=== PATIENT | female | born 1960 | race Caucasian/White ===

== ENCOUNTER 2020-02-02 07:40 | Outpatient (CLI) | payer OTHER, SELFPAY ==
[2020-02-02 08:21] LABS: Alanine Aminotransferase 17 U/L (4-35); Albumin Level 4.8 g/dL (3.5-5.1); Alkaline Phosphatase 68 U/L (38-126); Aspartate Amino Transferase 24 U/L (14-36); Bilirubin,Total 0.3 mg/dL (0.2-1.3); Blood Urea Nitrogen 13 mg/dL (7-17); Calcium 9.1 mg/dL (8.4-10.2); Carbon Dioxide 24 mmol/L (22-30); Chloride 103 mmol/L (98-107); Cholesterol 241 mg/dL (0-200); Estimated Glomerular Filt Rate > 60; Glucose 96 mg/dL (65-105); HDL Direct 66 mg/dL; Potassium 3.9 mmol/L (3.4-5.0); Sodium 135 mmol/L (137-145); Triglycerides 90 mg/dL (<150)
[2020-02-02 08:33] LABS: LDL Cholesterol Direct 152 mg/dL
[2020-02-02 09:27] LABS: Folic Acid 14.1 ng/mL (2.76->20)
[2020-02-02 16:15] LABS: Basophils Percent Auto 0.4 % (0.2-1.2); Eosinophils Percent Auto 0.4 % (0-4.4); Hematocrit 36.2 % (37.0-47.0); Hemoglobin 12.6 g/dL (12.0-15.0); Immature Granulocyte Absolute 0.01 K/mm3 (0.00-0.031); Immature Granulocyte Percent A 0.1 % (0-0.5); Lymphocytes Absolute Auto 2.22 K/mm3 (0.9-3.2); Lymphocytes Percent Auto 30.5 % (18.3-44.2); Mean Corpuscular HGB Conc 34.8 g/dl (32-36); Mean Corpuscular Hemoglobin 31.6 pg (26-34); Mean Corpuscular Volume 90.7 fl (80-100); Monocytes Absolute Auto 0.5 K/mm3 (0.1-0.6); Monocytes Percent Auto 6.7 % (2.6-8.5); Neutrophils Absolute Auto 4.5 K/mm3 (1.3-6.7); Neutrophils Percent Auto 61.9 % (45.5-73.1); Platelet Count Result 239 k/mm3 (150-375); Red Blood Count 3.99 M/mm3 (4.2-5.4); Red Cell Distribution Width 12.6 % (11.5-14.5); White Blood Count 7.3 K/mm3 (4.5-10.0)
== END 2020-02-02 07:41 | disposition home or self-care (01) ==
LOC: ANHLAB 07:42
PROVIDERS: PCP Nurse Practitioner Adult Health; Visit Provider Nurse Practitioner Adult Health
DX: Z13.220 Encounter for screening for lipoid disorders (principal); Z13.29 Encounter for screening for other suspected endocrine disorder; Z13.9 Encounter for screening, unspecified
CPT/HCPCS: 36415; 80053; 80061; 82607; 82746; 84443; 85025

== ENCOUNTER 2020-02-03 00:04 | Outpatient (CLI) | payer OTHER, SELFPAY ==
[2020-02-03 15:54] LABS: SARS-CoV-2 RNA PCR Negative
== END 2020-02-03 00:05 | disposition home or self-care (01) ==
LOC: ANHCOVIDDT 00:04
PROVIDERS: PCP Nurse Practitioner Adult Health; Visit Provider Internal Medicine Gastroenterology
DX: Z01.818 Encounter for other preprocedural examination (principal); Z11.59 Encounter for screening for other viral diseases
CPT/HCPCS: 87635; C9803; U0003

== ENCOUNTER 2020-02-06 03:27 | Day surgery (SDC) | payer OTHER, SELFPAY ==
[2020-02-02 11:37] VITALS: BMI 28.8
--- NOTE | 2020-02-05 16:30 | WPDANESEPP ---
Anes - Eval Pre Procedure Procedure: Operation Date: 02/06/20 07:30 Proposed Procedures p Esophagogastroduodenoscopy - Kashif Thorne MD Date/Time: 02/05/20 16:30 Surgeon: cindy Pre Op Diagnosis: dysphagia Patient Data Age: 59 Gender: F Height: 1.63 m Weight: 76 kg Allergies Allergy/AdvReac Type Severity Reaction Status Date / Time No Known Allergies Allergy Verified 02/02/20 11:24 Home Medications Medication Instructions Recorded Confirmed Type omeprazole 40 mg PO DAILY 02/02/20 02/02/20 History Patient hx anesthesia problems: none Family hx anesthesia problems: none PMFSH Surgical History Surgical History (Updated 02/05/20 @ 16:31 by Ledy Doe CRNA) H/O section H/O tubal ligation Social History Social History Smoking status: Never smoker Alcohol intake: current Gender identity (if verbalized by the patient): Female Exam Day of Procedure 02/05/20 16:30
[2020-02-06 06:05] VITALS: BP 144/66; PULSE 90; RESP 18; TEMP 36.6; O2SAT 100
[2020-02-06] MEDS: LACTATED RINGERS 1,000 ML 150 ML IV CONT (06:28)
--- NOTE | 2020-02-06 07:02 | PM.HPGS ---
History of Present Illness History of Present Illness Consent: Risks, benefits, and alternatives have been discussed and questions answered. Patient agrees to proceed with procedure. Chief complaint: dysphagia Narrative: Roxy Stewart is a 59 year old W female Referred for EGD and possible esophageal dilatation for evaluation she of intermittent substernal chest pain and back pain. She has occasional difficulty swallowing pills. Patient was seen by primary physician the EKG was performed. Patient was placed on omeprazole several days ago has had notice improvement. Patient is nonsmoker. Patient has had some increased stress recently. She denies any nonsteroidal inflammatory drugs. [facility] Surgical History Surgical History H/O section H/O tubal ligation Social History Social History Smoking status: Never smoker Alcohol intake: current Gender identity (if verbalized by the patient): Female Meds Home Medications and Allergies Home Medications Medication Instructions Recorded Confirmed Type omeprazole 40 mg PO DAILY 02/02/20 02/06/20 History Allergies Allergy/AdvReac Type Severity Reaction Status Date / Time No Known Allergies Allergy Verified 02/06/20 06:17 Vital Signs Vital Signs - 24 hr 02/06/20 06:05 Temperature 36.6 C Pulse Rate 90 Respiratory Rate 18 Blood Pressure 144/66 H Pulse Oximetry 100 Exam Const: Orientation/consciousness: patient oriented x3 Resp: Auscultation: clear to auscultation bilaterally Cardio: Rate: regular rate Rhythm: regular rhythm Heart sounds: no murmurs GI: GI Palp: Yes Soft to palpation, No Tenderness to palpation present (GI), Yes No hepatosplenomegaly present and No Palpable mass present Auscultation: normal bowel sounds Neuro: General: patient oriented x3 and no focal motor deficits Extrem: General: no pedal edema Assessment and Plan Additional Plan EGD possible esophageal dilatation for evaluation substernal chest pain back pain and and belching.
--- NOTE | 2020-02-06 07:11 | WPDANESEPPF ---
Anes - Initial Pre Proc Eval Procedure: Operation Date: 02/06/20 07:30 Proposed Procedures p Esophagogastroduodenoscopy - Kashif Thorne MD Date/Time: 02/06/20 07:11 Surgeon: Kashif Thorne MD Pre Op Diagnosis: dysphagia Patient Data Age: 59 Gender: F Height: 5 ft 4 in Weight: 75.6 kg Last Vital Signs Temp 97.8 F 02/06/20 06:05 Pulse 90 02/06/20 06:05 Resp 18 02/06/20 06:05 BP 144/66 H 02/06/20 06:05 Pulse Ox 100 02/06/20 06:05 Allergies Allergy/AdvReac Type Severity Reaction Status Date / Time No Known Allergies Allergy Verified 02/06/20 06:17 Home Medications Medication Instructions Recorded Confirmed Type omeprazole 40 mg PO DAILY 02/02/20 02/06/20 History Patient hx anesthesia problems: none Family hx anesthesia problems: none [facility] Past Medical History Medical History (Updated 02/06/20 @ 07:10 by Perry Singleton MD) Healthy adult Surgical History Surgical History H/O section H/O tubal ligation Social History Social History Smoking status: Never smoker Alcohol intake: current Gender identity (if verbalized by the patient): Female Anes - Eval Final PreProcedure Day of Procedure 02/06/20 07:11 Patient weight: overweight Heart: regular rate and rhythm Lungs: clear to auscultation Airway: Mallampati scale class II Neurological: alert and oriented Last oral intake: >/= 8 hours ASA classification: II Emergent: no Anesthetic plan: proceed Anesthesia type and monitoring: general GIVS and standard monitoring Informed Consent: The patient's anesthetic plan and its attendant risks and benefits were discussed with the patient/family/POA. Questions were solicited and answers provided to the satisfaction of the patient/family/POA.
--- NOTE | 2020-02-06 07:23 | SUR.OPER ---
0723 UPDATED SPOUSE TIMOTHY WITH PT'S PROGRESS Marnie BOLANOS RN
[2020-02-06 07:37] VITALS: BP 110/66; PULSE 96; RESP 19; O2SAT 97
[2020-02-06 07:47] VITALS: BP 121/66; PULSE 85; RESP 21; O2SAT 97
[2020-02-06 07:57] VITALS: BP 138/53; PULSE 82; RESP 25; O2SAT 100
== END 2020-02-06 08:07 | disposition home or self-care (01) ==
PROVIDERS: PCP Nurse Practitioner Adult Health; Visit Provider Internal Medicine Gastroenterology
PROC: 0DJ08ZZ Inspection of Upper Intestinal Tract, Via Natural or Artificial Opening Endoscopic (ICD-10-PCS; CPT 43235; principal; 2020-02-06 07:30)
DX: K21.0 Gastro-esophageal reflux disease with esophagitis (principal)
CPT/HCPCS: 43239; 87081; 88305; J2704; J7120

== ENCOUNTER 2020-03-01 10:07 | Outpatient (CLI) | payer OTHER, SELFPAY ==
--- NOTE | ~2020-03-01 | MM_ITS ---
EXAMINATION: MM screening ermelinda BI w nick HISTORY: Screening mammogram TECHNIQUE: Craniocaudal and mediolateral oblique 3-D tomosynthesis images were obtained and synthetic 2-D images were generated. CAD analysis was submitted and interpreted. COMPARISON: No prior mammogram is available for comparison at this institution. BREAST PARENCHYMAL COMPOSITION: There are scattered areas of fibroglandular density. FINDINGS: There is no evidence of suspicious mass, calcification, or architectural distortion to sugg est malignancy in either breast. There has been no suspicious interval change. IMPRESSION: 1. No mammographic evidence of malignancy. 2. Recommend routine screening mammography in one year. BI-RADS Category 1: Negative Reviewed, dictated and finalized at location A.
== END 2020-03-01 10:08 | disposition home or self-care (01) ==
LOC: ANHIMG 10:10
PROVIDERS: PCP Nurse Practitioner Adult Health; Visit Provider Nurse Practitioner Adult Health
DX: Z12.31 Encounter for screening mammogram for malignant neoplasm of breast (principal)
CPT/HCPCS: 77063; 77067

== ENCOUNTER 2020-03-05 08:53 | Outpatient (CLI) | payer OTHER, SELFPAY ==
--- NOTE | 2020-03-05 | EST_ITS ---
Patient Info Name: Roxy Stewart Age: 59 years : 1960 Gender: Female Ht: 64 in Wt: 165 lbs BSA: 1.86 m2 Exam Date: 03/05/2020 9:38 AM Exam Location: [facility] Stress Patient Status: Outpatient Admit Date: 03/05/2020 Staff Ordering Physician: Guerrero, Henny AGARWAL Attending Provider: Guerrero, Henny AGARWAL Exercise Technologist: Uma Novak RDCS Exercise Physician: Stephen Bui DO Exam Type: CA stress test treadmill Study Info Indications R07.89 - Other chest pain A treadmill exercise stress test was performed. Summary 1. 1. Negative Jose exercise stress test for ischemic ST changes by ECG criteria. 2. 2. Reduced functional capacity, achieving 7 METs of workload. 3. 3. Rapid HR response to exercise. 4. 4. Hypertensive response to exercise. 5. 5. No imaging with stress testing. 6. 6. Patient informed of the above results. Protocol: Jose Stress ECG Details Stage: REST Duration (min): 5 min : 2 sec Speed (mph): 0.0 Grade (%): 0 HR (bpm): 85 SBP (mmHg): 127 DBP (mmHg): 83 METS: --- Stage: REST Duration (min): 26 min : 17 sec Speed (mph): 0.0 Grade (%): 0 HR (bpm): 86 SBP (mmHg): 127 DBP (mmHg): 83 METS: --- Stage: STAGE 1 Duration (min): 1 min : 0 sec Speed (mph): 1.7 Grade (%): 10 HR (bpm): 122 SBP (mmHg): 127 DBP (mmHg): 83 METS: --- Stage: STAGE 1 Duration (min): 2 min : 0 sec Speed (mph): 1.7 Grade (%): 10 HR (bpm): 135 SBP (mmHg): 127 DBP (mmHg): 83 METS: --- Stage: STAGE 1 Duration (min): 3 min : 0 sec Speed (mph): 1.7 Grade (%): 10 HR (bpm): 138 SBP (mmHg): 204 DBP (mmHg): 80 METS: --- Stage: STAGE 2 Duration (min): 1 min : 0 sec Speed (mph): 2.5 Grade (%): 12 HR (bpm): 152 SBP (mmHg): 222 DBP (mmHg): 79 METS: --- Stage: STAGE 2 Duration (min): 2 min : 0 sec Speed (mph): 2.5 Grade (%): 12 HR (bpm): 157 SBP (mmHg): 220 DBP (mmHg): 81 METS: --- Stage: STAGE 2 Duration (min): 2 min : 0 sec Speed (mph): 2.5 Grade (%): 12 HR (bpm): 157 SBP (mmHg): 220 DBP (mmHg): 81 METS: --- Stage: RECOVERY Duration (min): 0 min : 59 sec Speed (mph): 0.0 Grade (%): 0 HR (bpm): 127 SBP (mmHg): 220 DBP (mmHg): 81 METS: --- Stage: RECOVERY Duration (min): 1 min : 59 sec Speed (mph): 0.0 Grade (%): 0 HR (bpm): 105 SBP (mmHg): 230 DBP (mmHg): 91 METS: --- Stage: RECOVERY Duration (min): 2 min : 59 sec Speed (mph): 0.0 Grade (%): 0 HR (bpm): 101 SBP (mmHg): 200 DBP (mmHg): 91 METS: --- Stage: RECOVERY Duration (min): 3 min : 59 sec Speed (mph): 0.0 Grade (%): 0 HR (bpm): 94 SBP (mmHg): 200 DBP (mmHg): 91 METS: --- Stage: RECOVERY Duration (min): 4 min : 59 sec Speed (mph): 0.0 G
== END 2020-03-05 08:54 | disposition home or self-care (01) ==
LOC: ANHCARD 08:59
PROVIDERS: PCP Nurse Practitioner Adult Health; Visit Provider Nurse Practitioner Adult Health
DX: R07.89 Other chest pain (principal)
CPT/HCPCS: 93017

== ENCOUNTER 2020-05-21 08:07 | Outpatient (CLI) | payer OTHER, SELFPAY ==
[2020-05-21 08:48] LABS: Cholesterol 248 mg/dL (0-200); HDL Direct 66 mg/dL; Triglycerides 90 mg/dL (<150)
[2020-05-21 08:59] LABS: LDL Cholesterol Direct 140 mg/dL
[2020-05-21 10:01] LABS: Folic Acid > 20.0 ng/mL (2.76->20)
== END 2020-05-21 08:08 | disposition home or self-care (01) ==
LOC: ANHLAB 08:09
PROVIDERS: PCP Nurse Practitioner Adult Health; Visit Provider Nurse Practitioner Adult Health
DX: E53.8 Deficiency of other specified B group vitamins (principal); E78.5 Hyperlipidemia, unspecified
CPT/HCPCS: 36415; 80061; 82607; 82746

== ENCOUNTER 2021-07-13 07:31 | Outpatient (CLI) | payer OTHER, SELFPAY ==
[2021-07-13 07:50] LABS: Basophils Percent Auto 0.3 % (0.2-1.2); Eosinophils Absolute Auto 0.1 K/mm3 (0-0.3); Eosinophils Percent Auto 1.1 % (0-4.4); Hematocrit 36.1 % (37.0-47.0); Hemoglobin 12.7 g/dL (12.0-15.0); Immature Granulocyte Absolute 0.01 K/mm3 (0.00-0.031); Immature Granulocyte Percent A 0.2 % (0-0.5); Lymphocytes Absolute Auto 2.09 K/mm3 (0.9-3.2); Lymphocytes Percent Auto 33.4 % (18.3-44.2); Mean Corpuscular HGB Conc 35.2 g/dl (32-36); Mean Corpuscular Hemoglobin 32.5 pg (26-34); Mean Corpuscular Volume 92.3 fl (80-100); Mean Platelet Volume 10.1 fl (7.4-10.4); Monocytes Absolute Auto 0.5 K/mm3 (0.1-0.6); Monocytes Percent Auto 8.1 % (2.6-8.5); Neutrophils Absolute Auto 3.6 K/mm3 (1.3-6.7); Neutrophils Percent Auto 56.9 % (45.5-73.1); Platelet Count Result 247 k/mm3 (150-375); Red Blood Count 3.91 M/mm3 (4.2-5.4); White Blood Count 6.3 K/mm3 (4.5-10.0)
[2021-07-13 08:02] LABS: Alanine Aminotransferase 22 U/L (4-35); Albumin Level 5.1 g/dL (3.5-5.1); Alkaline Phosphatase 57 U/L (38-126); Anion Gap 12 mmol/L (8-16); Aspartate Amino Transferase 28 U/L (14-36); Bilirubin,Total 0.5 mg/dL (0.2-1.3); Blood Urea Nitrogen 10 mg/dL (7-17); Calcium 9.3 mg/dL (8.4-10.2); Carbon Dioxide 22 mmol/L (22-30); Chloride 101 mmol/L (98-107); Cholesterol 272 mg/dL (0-200); Estimated Glomerular Filt Rate > 60; Glucose 92 mg/dL (65-110); HDL Direct 79 mg/dL; Potassium 3.9 mmol/L (3.4-5.0); Sodium 135 mmol/L (137-145); Triglycerides 75 mg/dL (<150)
[2021-07-13 08:13] LABS: LDL Cholesterol Direct 159 mg/dL
[2021-07-13 09:09] LABS: Folic Acid > 20.0 ng/mL (2.76->20)
== END 2021-07-13 07:32 | disposition home or self-care (01) ==
PROVIDERS: PCP Nurse Practitioner Adult Health; Visit Provider Nurse Practitioner Adult Health
DX: Z00.00 Encounter for general adult medical examination without abnormal findings (principal)
CPT/HCPCS: 36415; 80053; 80061; 82607; 82746; 84443; 85025

== ENCOUNTER 2021-11-06 09:42 | Outpatient (CLI) | payer OTHER, SELFPAY ==
--- NOTE | ~2021-11-06 | MM_ITS ---
EXAMINATION: MM screening ermelinda BI w nick HISTORY: Screening TECHNIQUE: Craniocaudal and mediolateral oblique 3-D tomosynthesis images were obtained and synthetic 2-D images were generated. CAD analysis was submitted and interpreted. COMPARISON: No prior mammogram is available for comparison at this institution. BREAST PARENCHYMAL COMPOSITION: There are scattered areas of fibroglandular density. FINDINGS: There is possible architectural distortion in the outer aspect of the right breast on cc vi ew. The left breast is stable without evidence for malignancy. IMPRESSION: 1. Possible architectural distortion of the right breast laterally. 2. Additional mammographic views and possible breast ultrasound are recommended. BI-RADS Category 0: Incomplete: Needs additional imaging evaluation. Reviewed, dictated and finalized at location A. NEWS DIRECTOR IMPRESSION: 1. Possible architectural distortion of the right breast laterally. 2. Additional mammographic views and possible breast ultrasound are recommended . BI-RADS Category 0: Incomplete: Needs additional imaging evaluation.
== END 2021-11-06 09:43 | disposition home or self-care (01) ==
LOC: ANHIMG 09:43
PROVIDERS: PCP Nurse Practitioner Adult Health; Visit Provider Nurse Practitioner Adult Health
DX: Z12.31 Encounter for screening mammogram for malignant neoplasm of breast (principal); R92.8 Other abnormal and inconclusive findings on diagnostic imaging of breast
CPT/HCPCS: 77063; 77067

== ENCOUNTER 2021-11-14 11:48 | Outpatient (CLI) | payer OTHER, SELFPAY ==
--- NOTE | ~2021-11-14 | MMUS_ITS ---
EXAMINATION: MM diagnostic ermelinda RT w nick, US breast RT limited HISTORY: Possible right breast architectural distortion on screening TECHNIQUE: Additional 3-D tomosynthesis images of the right breast were performed and synthetic 2-D i mages were generated. CAD analysis was submitted and interpreted. High resolution limited right breas t ultrasound was performed. COMPARISON: 11/06/2021, 03/01/2020 FINDINGS: MAMMOGRAPHIC FINDINGS: There is a return to baseline fibroglandular appearance with spot compression of the right breast in the area questioned on screening mammogram. ULTRASOUND: There is no evidence of focal abnormal solid or cystic mass in the vicinity of the mammographic findi ng in question. IMPRESSION: 1. No mammographic or sonographic evidence of malignancy. 2. Recommend routine screening mammography in one year. BI-RADS Category 1: Negative Reviewed, dictated and finalized at location A. IMPRESSION: 1. No mammographic or sonographic evidence of malignancy. 2. Recommend routine screening mammography in one year. BI-RADS Category 1: Negative
== END 2021-11-14 11:49 | disposition home or self-care (01) ==
LOC: ANHIMG 11:50
PROVIDERS: PCP Nurse Practitioner Adult Health; Visit Provider Nurse Practitioner Adult Health
DX: R92.8 Other abnormal and inconclusive findings on diagnostic imaging of breast (principal)
CPT/HCPCS: 76642; 77061; 77065; G0279

== ENCOUNTER 2022-06-28 07:32 | Outpatient (CLI) | payer OTHER, SELFPAY ==
[2022-06-28 08:14] LABS: Anion Gap 13 mmol/L (8-16); Blood Urea Nitrogen 12 mg/dL (7-17); Calcium 9.1 mg/dL (8.4-10.2); Carbon Dioxide 22 mmol/L (22-30); Chloride 102 mmol/L (98-107); Cholesterol 244 mg/dL (0-200); Estimated Glomerular Filt Rate > 60; Glucose 97 mg/dL (65-110); HDL Direct 73 mg/dL; Potassium 4.1 mmol/L (3.4-5.0); Sodium 137 mmol/L (137-145); Triglycerides 81 mg/dL (<150)
[2022-06-28 08:22] LABS: LDL Cholesterol Direct 134 mg/dL
[2022-06-28 09:20] LABS: Folic Acid > 20.0 ng/mL (2.76->20)
== END 2022-06-28 07:33 | disposition home or self-care (01) ==
LOC: ANHLAB 07:33
PROVIDERS: PCP Nurse Practitioner Adult Health; Visit Provider Nurse Practitioner Adult Health
DX: E78.5 Hyperlipidemia, unspecified (principal); E53.8 Deficiency of other specified B group vitamins
CPT/HCPCS: 36415; 80048; 80061; 82607; 82746

== ENCOUNTER 2022-07-02 15:48 | Outpatient (CLI) | payer OTHER, SELFPAY ==
--- NOTE | ~2022-07-02 | DEXA_ITS ---
Bone Density Report Name: MERCDE DUGAN Age: 62 Sex: Female Ethnicity: White Date of : 1960 Indication: postmenopausal; screening for osteoporosis; Referring Provider: ANYA, PARUL Study: Bone densitometry was performed. Exam Date: July 02, 2022 Accession number: [id number] Bone Density: Region BMD T-score Z-score Classification AP Spine(L1-L4) 1.210 1.5 3.2 Normal Femoral Neck (Left) 0.711 -1.2 0.2 Osteopenia Total Hip (Left) 0.829 -0.9 0.2 Normal Femoral Neck (Right) 0.722 -1.1 0.3 Osteopenia Total Hip (Right) 0.827 -0.9 0.2 Normal Total Hip Mean 0.828 -0.9 0.2 Normal World Health Organization criteria for BMD impression classify patients as: Normal (T-score at or above -1.0), Osteopenia (T-score between -1.0 and -2.5), or Osteoporosis (T-score at or below -2.5). 10-year Fracture Risk(1): Major Osteoporotic Fracture 9.8% Hip Fracture 1.0% Reported Risk Factors: [place] (), Neck BMD=0.711, BMI=26.4, alcohol use (1) FRAX(R) Version 3.08. Fracture probability calculated for an untreated patient. Fracture probability may be lower if the patient has received treatment. Clinical Information Provided by Patient: Has 3 or more alcoholic drinks per day Patient maximum height was 63 Menopause Age: 48 Does not regularly consume dairy products Drinks caffeinated beverages Impression: The patient has low bone mass, based on the Left Femoral Neck T-score. The patient has an estimated ten-year risk of hip fracture of 1% and an estimated ten-year risk of major fracture of 9.8%, based on the WHO FRAX algorithm. The patient has risk factors, including: excessive alcohol use. Discussion: BONE DENSITY IS LOW AT ONE OR MORE SKELETAL SITES. This patient's lowest T-score is low at one or more skeletal sites. It meets the World Health Organization's (WHO) criteria for ?low bone mass? (T-score between -1.0 and -2.5). The patient's 10-year risk of fracture as calculated by FRAX is less than the threshold where pharmacological therapy is recommended by the National Osteoporosis Foundation (NOF). However, all treatment decisions require clinical judgment and consideration of individual patient factors, including patient preferences, comorbidities, previous drug use, risk factors not captured in the FRAX model (e.g., frailty, falls, vitamin D deficiency, increased bone turnover, interval significant decline in bone density) and possible under or overestimation of fracture risk by FRAX. The patient should follow a healthful lifestyle (good nutrition with adequate calcium and vitamin D, and appropriate weight-bearing exercise). Follow-Up: Consider repeating this study in 2 to 3 years to reassess this patient's status, or sooner if there is some new clinical indication.
== END 2022-07-02 15:49 | disposition home or self-care (01) ==
PROVIDERS: PCP Nurse Practitioner Adult Health; Visit Provider Nurse Practitioner Adult Health
DX: Z78.0 Asymptomatic menopausal state (principal); M85.89 Other specified disorders of bone density and structure, multiple sites
CPT/HCPCS: 77080

== ENCOUNTER 2023-04-13 23:07 | Emergency (ER) | payer OTHER, SELFPAY ==
--- NOTE | ~2023-04-13 | XR_ITS ---
EXAMINATION: XR foot LT min 3V DATE: 04/14/2023 00:29 INDICATION: Left foot pain. Fall. TECHNIQUE: 3 views of left foot were obtained. COMPARISON: None. FINDINGS: There is a nondisplaced oblique fracture of diaphysis of fifth metatarsal. 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 There are ent hesophytes at the posterior and plantar aspects of calcaneal tuberosity. IMPRESSION: 1. Nondisplaced oblique fracture of diaphysis of fifth metatarsal. Reviewed, dictated and finalized at location A.
[2023-04-13 23:11] VITALS: BP 130/72; PULSE 75; RESP 20; TEMP 36.5; O2SAT 100
--- NOTE | 2023-04-14 01:13 | ED.FALL ---
HPI - Fall General Chief Complaint: Fall <ASHVIN Sarmiento Last Filed: 04/14/23 01:23> Stated Complaint: L foot pain <ASHVIN Sarmiento Last Filed: 04/14/23 01:23> Time Seen by Provider: 04/14/23 01:05 <Patricia Sandoval PA-C - Last Filed: 04/14/23 01:23> History of Present Illness HPI Narrative: 62-year-old female with a history of hyperlipidemia reports for evaluation for left foot pain after a fall that occurred earlier today while working out. Patient states she was using elastic bands while working out over both of her feet, lifted up her left foot and lost her balance. States she landed on her bottom and left hip and is unsure how she injured her foot during the fall. She denies hitting her head or losing consciousness. Denies other injury required her to fall. States he has been ambulating during the day with pain that only occurs during ambulation but is gone while at rest. She is reporting the pain, ecchymosis and edema overlying her fifth metatarsal. Denies paresthesias. <Patricia Sandoval PA-C - Last Filed: 04/14/23 01:23> Related Data Allergies/Adverse Reactions: Allergies Allergy/AdvReac Type Severity Reaction Status Date / Time No Known Allergies Allergy Verified 03/09/23 07:43 <Patricia Sandoval PA-C - Last Filed: 04/14/23 01:23> Review of Systems Review of Systems: CONSTITUTIONAL: Denies fever, chills EYES: Denies visual changes, redness, or discharge. ENT: Denies rhinorrhea, congestion, sore throat, or otalgia. CARDIOVASCULAR: Denies chest pain, palpitations, or edema. RESPIRATORY: Denies cough or dyspnea. GASTROINTESTINAL: Denies abdominal pain, nausea, vomiting, or diarrhea. GENITOURINARY: Denies dysuria or hematuria. SKIN: Denies rash or itching. MUSCULOSKELETAL: See HPI NEUROLOGIC: Denies headache, numbness, dizziness, or weakness. PSYCHIATRIC: Denies anxiety or depression. <ASHVIN Sarmiento Last Filed: 04/14/23 01:23> [facility] Past Medical History Medical History: Medical History BMI 25.0-25.9,adult Healthy adult <Patricia Sandoval PA-C - Last Filed: 04/14/23 01:23> Surgical History Surgical History: Surgical History H/O section H/O tubal ligation <Patricia Sandoval PA-C - Last Filed: 04/14/23 01:23> Social History Social History: Social History Smoking status: Never smoker Alcohol intake: current Substance use: never Lack of Transportation: No Lack of Food: Never True Current Housing: I Have Housing Concerned About Future Housing: No Difficulty Paying Gas/Electric Bills: No Difficulty Paying for Meds: No Currently Unemployed: No Education: High School Diploma/GED Difficulty w/ Childcare or Family Care: No Living arrangements: with family Occupation/Education: occupation Gender identity (if verbalized by the patient): Female <Patricia Sandoval PA-C - Last Filed: 04/14/23 01:23> Exam Narrative: GENERAL: Well-appearing, in no acute distress. HEAD: Normocephalic NECK: Supple. CHEST: No respiratory distress. Clear to auscultation, no adventitious breath sounds. HEART: Regular rate and rhythm. No murmur heard. Normal peripheral pulses. EXTREMITIES: Left foot with tenderness over the mid and distal fifth metatarsal. There is overlying edema and ecchymosis through the distal third through fifth metatarsals without tenderness. No tenderness to remainder of toes or foot. No tenderness to ankle or remainder of lower extremity. DP pulse 2+. Sensation intact. Cap refill less than 2. Patient is full range of motion of toes and ankle without difficulty. Compartments are soft. SKIN: Warm, dry, no rash. NEURO: No focal deficits. Alert and oriented x3. PSYCH: Normal mood and affect. <Patricia Tatum
== END 2023-04-14 02:25 | disposition home or self-care (01) ==
LOC: ANHED 04-14 01:22
PROVIDERS: Emergency Provider Physician Assistant; PCP Family Medicine
DX: S92.355A Nondisplaced fracture of fifth metatarsal bone, left foot, initial encounter for closed fracture (principal); E78.5 Hyperlipidemia, unspecified; W18.39XA Other fall on same level, initial encounter; Y93.B9 Activity, other involving muscle strengthening exercises
CPT/HCPCS: 29515; 73630; 99284

== ENCOUNTER 2023-06-22 14:02 | Outpatient (CLI) | payer OTHER, MEDICARE, SELFPAY ==
--- NOTE | ~2023-06-22 | MM_ITS ---
EXAMINATION: MM screening ermelinda BI w nick HISTORY: Screening mammogram TECHNIQUE: Craniocaudal and mediolateral oblique 3-D tomosynthesis images were obtained and synthetic 2-D images were generated. CAD analysis was submitted and interpreted. COMPARISON: 11/14/2021 diagnostic right mammogram and limited right breast ultrasound 11/06/2021, 03/01/2020 bilateral screening mammogram examinations BREAST PARENCHYMAL COMPOSITION: There are scattered areas of fibroglandular density. FINDINGS: There is no evidence of suspicious mass, calcification, or architectural distortion to sugg est malignancy in either breast. There has been no suspicious interval change. IMPRESSION: 1. No mammographic evidence of malignancy. 2. Recommend routine screening mammography in one year. BI-RADS Category 1: Negative Reviewed, dictated and finalized at location A.
== END 2023-06-22 14:03 | disposition home or self-care (01) ==
LOC: ANHIMG 14:03
PROVIDERS: PCP Family Medicine; Visit Provider Physician Assistant Medical
DX: Z12.31 Encounter for screening mammogram for malignant neoplasm of breast (principal)
CPT/HCPCS: 77063; 77067

== ENCOUNTER 2024-11-14 13:57 | Outpatient (CLI) | payer MEDICARE, SELFPAY ==
--- NOTE | ~2024-11-14 | MM_ITS ---
EXAMINATION: MM screening ermelinda BI w nick HISTORY: Screening TECHNIQUE: Craniocaudal and mediolateral oblique 3-D tomosynthesis images were obtained and synthetic 2-D images were generated. CAD analysis was submitted and interpreted. COMPARISON: Comparison to multiple prior studies sequentially, with oldest reviewed study dated 10/2019. BREAST PARENCHYMAL COMPOSITION: Not dense: There are scattered areas of fibroglandular density. FINDINGS: There is no evidence of suspicious mass, calcification, or architectural distortion to sugg est malignancy in either breast. There has been no suspicious interval change. IMPRESSION: 1. No mammographic evidence of malignancy. 2. Recommend routine screening mammography in one year. BI-RADS Category 1: Negative Reviewed, dictated and finalized at location B.
--- OUTSIDE RECORDS SUMMARY | 2024-11-14 16:32 | XMS_ITS | CONTINUITY OF CARE DOCUMENT ---
Author Name adam medina Address Unknown Organization [facility] Address [address] [place] [address] Phone [phone] Care Team Providers Care Under Ground Miner Name Role Phone Iron SHIELDS, [place] Unavailable PARUL GLEASON Unavailable [phone] PARUL GLEASON Unavailable INSURANCE PROVIDERS Payer name Policy type / Coverage type [place] [employer] party ID [employer] Commercial insurance co [facility] [id number]
== END 2024-11-14 13:58 | disposition home or self-care (01) ==
LOC: ANHIMG 13:59
PROVIDERS: PCP Family Medicine; Visit Provider Family Medicine
DX: Z12.31 Encounter for screening mammogram for malignant neoplasm of breast (principal)
CPT/HCPCS: 77063; 77067

== ENCOUNTER 2024-11-26 06:55 | Outpatient (CLI) | payer MEDICARE, SELFPAY ==
--- OUTSIDE RECORDS SUMMARY | 2024-11-26 07:01 | XMS_ITS | CONTINUITY OF CARE DOCUMENT ---
Author Name adam medina Address Unknown Organization [facility] Address [address] [place] [address] Phone [phone] Care Team Providers Care Knit Goods Mender Name Role Phone Iron SHIELDS, [place] Unavailable PARUL GLEASON Unavailable [phone] PARUL GLEASON Unavailable INSURANCE PROVIDERS Payer name Policy type / Coverage type [place] [employer] party ID [employer] Commercial insurance co [facility] [id number]
[2024-11-26 07:37] LABS: Cholesterol 244 mg/dL (0-200); HDL Direct 62 mg/dL; Triglycerides 73 mg/dL (<150)
[2024-11-26 07:48] LABS: LDL Cholesterol Direct 136 mg/dL
[2024-11-26 09:22] LABS: Vitamin D 25 Hydroxy 48.1 ng/mL
== END 2024-11-26 06:56 | disposition home or self-care (01) ==
LOC: ANHLAB 06:59
PROVIDERS: PCP Family Medicine
DX: E55.9 Vitamin D deficiency, unspecified (principal); E78.2 Mixed hyperlipidemia
CPT/HCPCS: 36415; 80061; 82306

== ENCOUNTER 2025-07-01 07:26 | Outpatient (CLI) | payer MEDICARE, SELFPAY ==
[2025-07-01 08:05] LABS: Hematocrit 38.4 % (37.0-47.0); Hemoglobin 13.2 g/dL (12.0-15.0); Immature Granulocyte Percent A 0.2 % (0-0.5); Lymphocytes Absolute Auto 1.79 K/mm3 (0.9-3.2); Mean Corpuscular HGB Conc 34.4 g/dl (32-36); Mean Corpuscular Hemoglobin 31.5 pg (26-34); Mean Corpuscular Volume 91.6 fl (80-100); Nucleated Red Blood Cells Absolute Auto 0.000 K/mm3 (0.0-0.012); Nucleated Red Blood Cells Perc 0.0 % (0.0-0.2); Platelet Count Result 232 k/mm3 (150-375); Red Blood Count 4.19 M/mm3 (4.2-5.4); White Blood Count 4.2 K/mm3 (4.5-10.0)
[2025-07-01 08:19] LABS: Alanine Aminotransferase 29 U/L (6-35); Albumin Level 4.9 g/dL (3.5-5.1); Alkaline Phosphatase 59 U/L (38-126); Anion Gap 10 mmol/L (4-12); Aspartate Amino Transferase 34 U/L (14-36); Bilirubin,Total 0.5 mg/dL (0.2-1.3); Blood Urea Nitrogen 13 mg/dL (7-17); Calcium 9.5 mg/dL (8.4-10.2); Carbon Dioxide 24 mmol/L (22-30); Chloride 100 mmol/L (98-107); Cholesterol 287 mg/dL (0-200); Estimated Glomerular Filt Rate > 60; Glucose 104 mg/dL (65-110); HDL Direct 74 mg/dL; Potassium 4.2 mmol/L (3.4-5.0); Sodium 134 mmol/L (137-145); Total Protein 8.1 g/dL (6.3-8.2); Triglycerides 76 mg/dL (<150)
[2025-07-01 08:33] LABS: Hemoglobin A1C 5.2 % (<5.7)
[2025-07-01 09:01] LABS: Iron 96 ug/dL (37-170)
[2025-07-01 09:10] LABS: Percent Iron Saturation 35 % (20-50)
[2025-07-01 09:31] LABS: Vitamin B12 601.0 pg/mL (239-931)
== END 2025-07-01 07:27 | disposition home or self-care (01) ==
LOC: ANHLAB 07:32
PROVIDERS: PCP Family Medicine; Referring Provider Registered Nurse
DX: D64.9 Anemia, unspecified (principal); E55.9 Vitamin D deficiency, unspecified; E78.2 Mixed hyperlipidemia; R73.03 Prediabetes
CPT/HCPCS: 36415; 80053; 80061; 82306; 82607; 82746; 83036; 83540; 83550; 85025

== ENCOUNTER 2025-08-16 10:53 | Outpatient (CLI) | payer MEDICARE, SELFPAY ==
[2025-08-19 03:07] LABS: Free Testosterone (Direct) 1.0 pg/mL (0.0-4.2)
== END 2025-08-16 10:54 | disposition home or self-care (01) ==
PROVIDERS: PCP Family Medicine; Visit Provider Registered Nurse
DX: L64.8 Other androgenic alopecia (principal)
CPT/HCPCS: 82627; 84270; 84402; 84403